=== PATIENT | female | born 1940 | race Caucasian/White ===

== ENCOUNTER 2022-05-01 11:14 | Emergency (ER) | payer MEDICARE, OTHER | END 2022-05-01 12:38 | disposition home or self-care (01) | LOC: CC.ED 11:14 | DX: S90.112A Contusion of left great toe without damage to nail, initial encounter (principal); S99.922A Unspecified injury of left foot, initial encounter; R03.0 Elevated blood-pressure reading, without diagnosis of hypertension; Z79.899 Other long term (current) drug therapy; Z87.891 Personal history of nicotine dependence; W19.XXXA Unspecified fall, initial encounter | CPT/HCPCS: 73630-LT; 99283; 99284 ==